=== PATIENT | male | born 1975 | race Caucasian/White ===

== ENCOUNTER 2016-11-09 14:04 | Emergency (ER) | payer OTHER ==
--- NOTE | ~2016-11-09 | ER ---
PATIENT'S NAME: KAREEM SING[facility] AGE: 41 Y [address] ROOM: [place] [address] LOCATION: [facility] ADMIT DATE: 11/09/2016 ER/Outpatient Report DISCHARGE DATE: 11/09/2016 FAMILY PHYSICIAN: Serg Styles MD ATTENDING PHYSICIAN: Alyssa Cardenas Time of Arrival: 1404 hours. Time of Evaluation: 1415 hours. CHIEF COMPLAINT: Head laceration. HISTORY OF PRESENT ILLNESS: This is a 41-year-old male who presents to ER with a head laceration, happened approximately 20 minutes prior to arrival. The patient states he was working on a vehicle. When he lifted his head up, he cut his head on a part of the vehicle. He states that he was not knocked out. He has had no nausea, no vomiting. He states he is up-to-date on his tetanus shot. He denies any other problems at this time. ALLERGIES: NO KNOWN ALLERGIES. MEDICATIONS: Please see medication list and nurse's notes. PAST MEDICAL HISTORY: Hypertension. PAST SURGICAL HISTORY: Hernia repair and a vasectomy. SOCIAL HISTORY: Denies smoking, drug, or alcohol use. ROS: CONSTITUTIONAL: Denies any change in weight or fatigue. MUSCULOSKELETAL: Weakness, myalgias. HEME: No easy bruising or bleeding. SKIN: He has a scalp laceration. PHYSICAL EXAMINATION: VITAL SIGNS: Weight 108.3 kg taken, blood pressure is 160/86, pulse is 62, respirations 16, temperature 97.7 degrees tympanically, saturations 98% on room air. [place] Coma Score is 15. PATIENT'S NAME: KAREEM SINGH [facility] AGE: 41 Y [address] ROOM: [place], [place] [address] LOCATION: [facility] ADMIT DATE: 11/09/2016 ER/Outpatient Report DISCHARGE DATE: 11/09/2016 FAMILY PHYSICIAN: Serg Styles MD ATTENDING PHYSICIAN: lAyssa Cardenas GENERAL: Alert, calm, well-developed male, in no acute distress. HEENT: Head: Normocephalic. Eyes: Pupils are equal and reactive to light. Does display moist mucous membranes. EXTREMITIES: No clubbing, cyanosis, or edema. There is full range of motion of all limbs. SKIN: He has a 5 cm posterior scalp laceration that is not actively bleeding. LABORATORY DATA AND X-RAYS: None were done. IMPRESSION: A 5 cm posterior scalp laceration. ASSESSMENT AND PLAN: I did numb the site with 1% lidocaine with epinephrine. Cleansed the site with Betadine, flushed with normal saline, and repaired the laceration using 5- 0 Ethilon. The patient did tolerate this well. We did cleanse the area and placed the antibiotic ointment to the area. He needs to ice his scalp. He may take Tylenol or ibuprofen as needed for pain control. We will send him home with a wound care handout and he needs to follow up with his primary care physician in 7-10 days. The patient understands and agrees with care. CONNIE BARRAZA PA-C FOR MD [facility] WELLS/andrew /[id number] d: 11/10/16 0050 t: 11/15/16 0114, OUTPATIENT REPORT
== END 2016-11-09 14:41 | disposition disaster alternative care site (69) ==
LOC: GACC 14:04
PROC: 0HQ0XZZ Repair Scalp Skin, External Approach (ICD-10-PCS; principal; 2016-11-09)
DX: S01.01XA Laceration without foreign body of scalp, initial encounter (principal); I10 Essential (primary) hypertension; W26.8XXA Contact with other sharp object(s), not elsewhere classified, initial encounter; Y92.69 Other specified industrial and construction area as the place of occurrence of the external cause; Y99.0 Civilian activity done for income or pay